=== PATIENT | female | born 1965 | race Caucasian/White ===

== ENCOUNTER 2023-07-30 03:34 | Emergency (ER) | payer BC ==
[2023-07-30] MEDS ORDERED: Cyclobenzaprine 10 MG Tab PO ONE (04:30)
[2023-07-30] MEDS ORDERED: Take Home: Cyclobenzaprine 10 MG Tab, 4 Tab Pack PO ONE (06:19)
[2023-07-30] MEDS ORDERED: Morphine 2 MG/ML SYRINGE IM ONE (06:19)
== END 2023-07-30 06:50 | disposition home or self-care (01) ==
LOC: DL.ED 03:34
DX: M25.451 Effusion, right hip (principal); N18.31 Chronic kidney disease, stage 3a; Z79.899 Other long term (current) drug therapy
CPT/HCPCS: 73700-RT; 96372; 99283; 99284; A9270-GY; J2270